=== PATIENT | male | born 2000 | race Caucasian/White ===

== ENCOUNTER 2021-04-21 02:04 | Emergency (ER) | payer MEDICAID ==
[~2021-04-21] VITALS: Ht 167.6 cm; Wt 86.2 kg
[~2021-04-21 02:04] MED LIST: ARIP10TA9 PO; RISP1TAB45 PO; SER25 PO; WELSR150 PO
[2021-04-21 02:10] VITALS: BP_SYST 135
--- NOTE | 2021-04-21 02:20 | NUR ---
Patient BIB by family from home. C/O left shoulder pain x today. Patient reported, hit dresser by accident ~ 0030, left shoulder pain. A/O,X4, left shoulder pain, pain rate 05/02.
--- NOTE | 2021-04-21 02:22 | NUR ---
ER Dr. Mccracken at bedside examining patient.
[2021-04-21] MEDS: KETOROLAC TROMETHAMINE 30 MG VIAL IM ONE ×2 (02:30→02:39)
--- NOTE | 2021-04-21 02:31 | NUR ---
Patient refused IM medication, Dr. Mccracken notified.
--- NOTE | 2021-04-21 02:35 | NUR ---
X-ray at bedside.
[2021-04-21] MEDS ORDERED: ACETAMINOPHEN 500 MG TABLET PO ONE (02:45)
[2021-04-21] MEDS ORDERED: NAPR-1172 PO (03:07)
[2021-04-21 03:33] VITALS: BP_SYST 135
--- NOTE | 2021-04-21 03:33 | NUR ---
Patient given written and verbal discharge instructions and verbalizes understanding. ER MD discussed with patient the results and treatment provided. Patient in stable condition. ID arm band removed. Rx of Naprosyn given. Patient educated on pain management and to follow up with PMD. Pain Scale 2/10. Opportunity for questions provided and answered. Medication side effect fact sheet provided.
== END 2021-04-21 03:33 | disposition home or self-care (01) ==
LOC: SED 02:04
DX: S43.402A Unspecified sprain of left shoulder joint, initial encounter (principal); Z79.899 Other long term (current) drug therapy; W22.8XXA Striking against or struck by other objects, initial encounter; Y93.89 Activity, other specified; Y92.89 Other specified places as the place of occurrence of the external cause; Y99.8 Other external cause status
CPT/HCPCS: 73030; 99283; J1885

== ENCOUNTER 2022-07-17 16:11 | Emergency (ER) | payer MEDICAID ==
[~2022-07-17] VITALS: Ht 182.9 cm; Wt 92.5 kg
[~2022-07-17 16:11] MED LIST changes: +NAPR-1172 PO
[2022-07-17 16:20] VITALS: BP_SYST 135
[2022-07-18] MEDS ORDERED: PSEU30TA36 PO (11:06)
[2022-07-18] MEDS ORDERED: IBUP-1971 PO (11:06)
== END 2022-07-17 19:50 | disposition left against medical advice (07) ==
LOC: SED 16:11
DX: R20.2 Paresthesia of skin (principal); R07.9 Chest pain, unspecified; R06.02 Shortness of breath; Z53.21 Procedure and treatment not carried out due to patient leaving prior to being seen by health care provider
CPT/HCPCS: 93005

== ENCOUNTER 2022-07-18 09:46 | Emergency (ER) | payer MEDICAID ==
[~2022-07-18] VITALS: Ht 175.3 cm; Wt 93.0 kg
[2022-07-18 09:54] VITALS: BP_SYST 139
--- NOTE | 2022-07-18 10:00 | NUR ---
Patient to ER bed TRIAGE to gown for evaluation. Side rails up.
--- NOTE | 2022-07-18 10:05 | NUR ---
ER at bedside examining patient.
[2022-07-18] MEDS ORDERED: IBUP-1971 PO (11:06)
[2022-07-18] MEDS ORDERED: PSEU30TA36 PO (11:06)
[2022-07-18 11:10] VITALS: BP_SYST 135
--- NOTE | 2022-07-18 11:15 | NUR ---
Patient given written and verbal discharge instructions and verbalizes understanding. ER MD discussed with patient the results and treatment provided. Patient in stable condition. ID arm band removed. Rx of AMEYA HERRERA given. Patient educated on pain management and to follow up with PMD. Pain Scale 0. Opportunity for questions provided and answered. Medication side effect fact sheet provided.
== END 2022-07-18 11:10 | disposition home or self-care (01) ==
LOC: SED 09:46
DX: J40 Bronchitis, not specified as acute or chronic (principal); R50.9 Fever, unspecified; R05.9 Cough, unspecified; R07.81 Pleurodynia; Z79.899 Other long term (current) drug therapy; Z20.822 Contact with and (suspected) exposure to COVID-19
CPT/HCPCS: 36415; 71045; 99284